=== PATIENT | female | born 1995 ===

== ENCOUNTER 2022-05-04 05:31 | Emergency (ER) | payer SELFPAY ==
[2022-05-04 05:41] VITALS: BP 112/68
[2022-05-04 05:55] LABS: Bilirubin,Urine NEG (Negative); Blood,Urine LG (Negative); Color,Urine Red (Yellow)
[2022-05-04 05:58] LABS: Mucus,Urine 3+ /HPF
[2022-05-04 05:59] LABS: Protein,Urine >500 mg/dL (Negative); RBC,Urine > 182.0 /HPF (0.0-6.0); WBC,Urine > 182.0 /HPF (0.0-6.0)
[2022-05-04 06:00] LABS: HCG Qualitative,Urine Negative (Negative)
== END 2022-05-04 06:55 | disposition left against medical advice (07) ==
LOC: ED 05:31
DX: N39.0 Urinary tract infection, site not specified (principal); Z53.21 Procedure and treatment not carried out due to patient leaving prior to being seen by health care provider
CPT/HCPCS: 81001; 81025